=== PATIENT | female | born 1970 | race Two or more races ===

== ENCOUNTER 2017-07-11 23:53 | Emergency (ER) | payer OTHER ==
[2017-07-11] MEDS ORDERED: NS 1,000 ML IV ONE (23:58)
--- NOTE | 2017-07-12 00:01 | EDPHY ---
H & P Time Seen by Provider: 07/11/17 23:59 HPI/ROS: HPI CHIEF COMPLAINT: Presyncope HISTORY OF PRESENT ILLNESS: Patient very pleasant 46-year-old female she is otherwise healthy however has been dealing with heavy vaginal bleeding for the past month and ongoing vaginal bleeding approximately 2 pads every 2 hr, she presents emergency room by EMS after she had a pre syncopal episode at work. She just got to work she was in a standing position at a meeting and off sign got very hot flushed and lightheaded. She was eased to the ground by a friend. Denies chest pain or shortness of breath. Denies palpitations. Did not have a full syncopal episode. She states she felt very hot and flushed and her friend"her often felt better. EMS transported here here to the emergency room in no acute distress with stable vital signs. Since arriving to the emergency room the patient feels well. She denies chest pain or shortness of breath. Past Medical History: No significant medical history except for vaginal bleeding Past Surgical History: No surgical history Social History: Denies daily use of alcohol drugs, does smoke tobacco daily. Family History: Noncontributory ROS REVIEW OF SYSTEMS: A comprehensive 10 point review of systems is otherwise negative aside from elements mentioned in the history of present illness. Exam Constitutional appears nontoxic no acute distress triage nursing summary reviewed, vital signs reviewed, awake/alert. Eyes EOMI, PERRLA. Conjunctival seems to be pale. HENT normal inspection, atraumatic, moist mucus membranes, no epistaxis, neck supple/ no meningismus, no raccoon eyes. Respiratory clear to auscultation bilaterally, normal breath sounds, no respiratory distress, no wheezing. Cardiovascular rate normal, regular rhythm, no murmur, no edema, distal pulses normal. Gastrointestinal soft, non-tender, no rebound, no guarding, normal bowel sounds, no distension, no pulsatile mass. Genitourinary no CVA tenderness. Musculoskeletal no midline vertebral tenderness, full range of motion, no calf swelling, no tenderness of extremities, no meningismus, good pulses, neurovascularly intact. Skin pink, warm, & dry, no rash, skin atraumatic. Neurologic awake, alert and oriented x 3, AAOx3, moves all 4 extremities equally, motor intact, sensory intact, CN II-XII intact, normal cerebellar, normal vision, normal speech. Psychiatric normal mood/affect. Heme/Lymph/Immune no lymphadenopathy. 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 Gentle IV hydration is. Troponin and D-dimer. Re-evaluate. Re-evaluation: EKG interpretation by me on record in [facility] system. Impression time of EKG sinus rhythm rate of 78, no ST elevation or ST depression no significant T- wave abnormalities no signs of cardiac arrhythmia. Unremarkable EKG. 0146AM: Patient re-evaluated this time resting comfortably no acute distress. No chest pain or shortness of breath she has been on the school bus monitor with no signs of cardiac arrhythmia. Orthostatics were negative. Her EKG is unremarkable. Ultrasound of the pelvis shows endometrial thickening 10 mm. Most likely endometrial polyps. Do recommend she follows up with OBGYN for this. I have given her referral. Should call their for follow-up appointment. Blood counts are appropriate. Not severely anemic. Recommend she stays well hydrated. Returns emergency room she develops chest pain shortness of breath fever syncope or any further questions or concerns. Source: Patient, EMS Constitutional: Initial Vital Signs Temperature (C) 36.6 C 07/12/17 00:01 Heart Rate 89 07/12/17 00:01 Respiratory Rate 16 07/12/17 00:01 Blood Pressure 124/86 H 07/12/17 00:01 O2 Sat (%) 99 07/12/17 00:01 O2 Delivery Mode Room Air Allergies/Adverse Reactions: No Known Allergies Allergy (Unverified 07/12/17 00:04) Home Medications: Medication Instructions Recorded NK [No Known Home Meds] 07/12/17 Medical Decision Making - Data Points Laboratory Results: Laboratory Results 07/11/17 Unknown 07/11/17 23:55 07/12/17 07/11/17 07/11/17 00:15 Unknown 23:55 WBC 8.57 10^3/uL 10^3/uL (3.80-9.50) RBC 4.83 10^6/uL 10^6/uL (4.18-5.33) Hgb 11.1 g/dL L g/dL (12.6-16.3) Hct 36.2 % L % (38.0-47.0) MCV 74.9 fL L fL (81.5-99.8) MCH 23.0 pg L pg (27.9-34.1) MCHC 30.7 g/dL L g/dL (32.4-36.7) RDW 19.9 % H % (11.5-15.2) Plt Count 391 10^3/uL 10^3/uL (150-400) MPV 10.2 fL fL (8.7-11.7) Neut % (Auto) 46.4 % % (39.3-74.2) Lymph % (Auto) 40.3 % % (15.0-45.0) Yancey % (Auto) 8.3 % % (4.5-13.0) Eos % (Auto) 3.9 % % (0.6-7.6) Baso % (Auto) 0.9 % % (0.3-1.7) Nucleat RBC Rel Count 0.0 % % (0.0-0.2) Absolute Neuts (auto) 3.98 10^3/uL 10^3/uL (1.70-6.50) Absolute Lymphs (auto) 3.45 10^3/uL H 10^3/uL (1.00-3.00) Absolute Monos (auto) 0.71 10^3/uL 10^3/uL (0.30-0.80) Absolute Eos (auto) 0.33 10^3/uL 10^3/uL (0.03-0.40) Absolute Basos (auto) 0.08 10^3/uL 10^3/uL (0.02-0.10) Absolute Nucleated RBC 0.00 10^3/uL 10^3/uL (0-0.01) Immature Gran % 0.2 % % (0.0-1.1) Immature Gran # 0.02 10^3/uL 10^3/uL (0.00-0.10) PT INR APTT D-Dimer Sodium Potassium Chloride Carbon Dioxide Anion Gap BUN Creatinine Estimated GFR Glucose Calcium Magnesium Total Bilirubin Conjugated Bilirubin Unconjugated Bilirubin AST ALT Alkaline Phosphatase Creatine Kinase CK-MB (CK-2) Fraction Troponin I NT-Pro-B Natriuret Pep Total Protein Albumin Beta HCG, Qual NEGATIVE Patient ABO/Rh O POSITIVE Antibody Screen NEGATIVE 07/11/17 07/11/17 23:55 23:55 WBC RBC Hgb Hct MCV MCH MCHC RDW Plt Count MPV Neut % (Auto) Lymph % (Auto) Yancey % (Auto) Eos % (Auto) Baso % (Auto) Nucleat RBC Rel Count Absolute Neuts (auto) Absolute Lymphs (auto) Absolute Monos (auto) Absolute Eos (auto) Absolute Basos (auto) Absolute Nucleated RBC Immature Gran % Immature Gran # PT 12.8 SEC SEC (12.0-15.0) INR 0.94 (0.83-1.16) APTT 20.0 SEC L SEC (23.0-38.0) D-Dimer < 0.27 ug/mLFEU ug/mLFEU (0.00-0.50) Sodium 141 mEq/L mEq/L (135-145) Potassium 4.1 mEq/L mEq/L (3.3-5.0) Chloride 104 mEq/L mEq/L (97-110) Carbon Dioxide 22 mEq/l mEq/l (22-31) Anion Gap 15 mEq/L mEq/L (8-16) BUN 7 mg/dL mg/dL (7-23) Creatinine 0.7 mg/dL mg/dL (0.6-1.0) Estimated GFR > 60 Glucose 121 mg/dL H mg/dL (70-100) Calcium 9.4 mg/dL mg/dL (8.5-10.4) Magnesium 1.8 mg/dL mg/dL (1.6-2.3) Total Bilirubin 0.9 mg/dL mg/dL (0.1-1.4) Conjugated Bilirubin 0.4 mg/dL mg/dL (0.0-0.5) Unconjugated Bilirubin 0.5 mg/dL mg/dL (0.0-1.1) AST 25 IU/L IU/L (14-46) ALT 34 IU/L IU/L (9-52) Alkaline Phosphatase 105 IU/L IU/L (38-126) Creatine Kinase 35 IU/L IU/L (0-156) CK-MB (CK-2) Fraction 0.26 ng/mL ng/mL (0.00-3.19) Troponin I < 0.012 ng/mL ng/mL (0.000-0.034) NT-Pro-B Natriuret Pep 66 pg/mL pg/mL (0-125) Total Protein 7.4 g/dL g/dL (6.3-8.2) Albumin 4.2 g/dL g/dL (3.5-5.0) Beta HCG, Qual Patient ABO/Rh Antibody Screen Medications Given: Discontinued Medications Sodium Chloride (Ns) 1,000 mls @ 0 mls/hr IV EDNOW ONE; Wide Open PRN Reason: Protocol Stop: 07/11/17 23:59 Last Admin: 07/12/17 00:14 Dose: 1,000 mls Departure - Departure Disposition: Home, Routine, Self-Care Clinical Impression: Pre-syncope Condition: Good Instructions: Near Syncope (ED), Dysfunctional Uterine Bleeding (ED) Additional Instructions: 1. Stay well-hydrated drink lots of fluids. 2. Return emergency room immediately if he develops chest pain shortness of breath or pass out. 3. Please follow up with OBGYN about your vaginal bleeding. Referrals: Patient,NotPresent [Unknown] - As per Instructions
[2017-07-12 00:09] LABS: PLATELET COUNT 391 10^3/uL (150-400)
--- NOTE | 2017-07-12 00:13 | CPEKG ---
Heart Rate: 78 RR Interval: 769 P-R Interval: 128 QRSD Interval: 86 QT Interval: 392 QTC Interval: 447 P Egl[place]: 13 QRS Eglon: -11 T Wave E[place]: 41 EKG Severity - NORMAL ECG - EKG Impression: SINUS RHYTHM Electronically Signed By: Ventura Cardoza 12-Jul-2017 06:49:37
[2017-07-12 00:16] LABS: INR 0.94 (0.83-1.16); PROTIME(PATIENT) 12.8 SEC (12.0-15.0)
[2017-07-12 00:29] LABS: CREATINE KINASE 35 IU/L (0-156)
[2017-07-12 02:07] VITALS: BP 124/99
== END 2017-07-12 02:07 | disposition home or self-care (01) ==
DX: R55 Syncope and collapse (principal); E86.9 Volume depletion, unspecified